=== PATIENT | female | born 1985 | race Caucasian/White ===

== ENCOUNTER 2017-07-21 06:15 | Day surgery (SDC) | payer BC ==
[~2017-07-21 06:15] MED LIST: Lactated Ringers 1,000 ML IV SCH; Sodium Chloride 0.9% 10 ML Syringe FLUSH PRN; Sodium Chloride 0.9% 2.5 ML Syringe FLUSH PRN
--- NOTE | 2017-07-21 06:59 | PCM.PREANE ---
Preanesthetic Assessment - Anesthesia/Transfusion/Family Hx Anesthesia History: Prior Anesthesia Without Reaction Family History of Anesthesia Reaction: No Transfusion History: No Prior Transfusion(s) Intubation History: Unknown - Review of Systems General: No Symptoms Pulmonary: No Symptoms Cardiovascular: No Symptoms Gastrointestinal: No Symptoms Neurological: No Symptoms Other: Reports: None - Physical Assessment Height: 1.68 m Weight: 73.482 kg ASA Class: 2 Mental Status: Alert & Oriented x3 Airway Class: Mallampati = 2 Dentition: Reports: Normal Dentition Thyro-Mental Finger Breadths: 3 Mouth Opening Finger Breadths: 3 ROM/Head Extension: Full Lungs: Clear to Auscultation, Normal Respiratory Effort Cardiovascular: Regular Rate, Regular Rhythm - Lab Values: Laboratory Last Values WBC 9.54 K/uL (4.0-11.0) 07/21/17 06:41 RBC 4.73 M/uL (4.30-5.90) 07/21/17 06:41 Hgb 14.1 g/dL (12.0-16.0) 07/21/17 06:41 Hct 41.2 % (36.0-46.0) 07/21/17 06:41 MCV 87.1 fL (80.0-98.0) 07/21/17 06:41 MCH 29.8 pg (27.0-32.0) 07/21/17 06:41 MCHC 34.2 g/dL (31.0-37.0) 07/21/17 06:41 RDW Std Deviation 42.9 fl (28.0-62.0) 07/21/17 06:41 RDW Coeff of Shreyas 13 % (11.0-15.0) 07/21/17 06:41 Plt Count 476 K/uL (150-400) H 07/21/17 06:41 MPV 9.30 fL (7.40-12.00) 07/21/17 06:41 Nucleated RBC % 0.0 /100WBC 07/21/17 06:41 Nucleated RBCs # 0 K/uL 07/21/17 06:41 - Allergies Allergies/Adverse Reactions: Allergies Allergy/AdvReac Type Severity Reaction Status Date / Time No Known Allergies Allergy Verified 07/16/17 11:44 - Blood Blood Available: No - Anesthesia Plan Pre-Op Medication Ordered: None - Acknowledgements Anesthesia Type Planned: General Anesthesia Pt an Appropriate Candidate for the Planned Anesthesia: Yes Alternatives and Risks of Anesthesia Discussed w Pt/Guardian: Yes Pt/Guardian Understands and Agrees with Anesthesia Plan: Yes PreAnesthesia Questionnaire Respiratory History: Reports: Other (See Below) Other Respiratory History: has not been diagnosed with COPD but uses an inhaler when SOB Gastrointestinal History: Reports: GERD, Other (See Below) (h/o gastric ulcer) Other Genitourinary History: recent UTI, has finished antibiotics [employer] History: Reports: Neurological History: Reports: Concussion Dermatologic History: Reports: Other (See Below) Other Dermatologic History: Dermagraphia - Past Surgical History HEENT Surgical History: Reports: Adenoidectomy, Naso-Sinus Surgery, Tonsillectomy Female Surgical History: Reports: None - SUBSTANCE USE Smoking Status *Q: Current Every Day Smoker (1 ppd) Tobacco Use Within Last Twelve Months: Cigarettes Recreational Drug Use History: No Recreational Drug Type: Reports: Marijuana/Hashish - HOME MEDS Home Medications: Home Meds Albuterol [IJD: Albuterol HFA] 1 puff INH ASDIRECTED PRN 07/16/17 [History] Fexofenadine [Queta] 360 mg PO DAILY 07/16/17 [History] Ibuprofen 400 mg PO ASDIRECTED 07/16/17 [History] Omeprazole Magnesium [Prilosec] 10 mg PO DAILY 07/16/17 [History] hydrOXYzine HCl [hydrOXYzine] 25 mg PO BEDTIME 07/16/17 [History] oxyCODONE HCl/Acetaminophen [Percocet 5-325 mg Tablet] 1 tab PO Q6HR PRN [History] - CURRENT (IN HOUSE) MEDS Current Meds: Current Medications Lactated Ringer's (Ringers, Lactated) 1,000 mls @ 125 mls/hr IV ASDIRECTED ALBERTA Last Admin: 07/21/17 06:48 Dose: 125 mls/hr Sodium Chloride (Saline Flush) 10 ml FLUSH ASDIRECTED PRN PRN Reason: Keep Vein Open Sodium Chloride (Saline Flush) 2.5 ml FLUSH ASDIRECTED PRN PRN Reason: Keep Vein Open
[2017-07-21] MEDS ORDERED: Propofol 200 MG/20 ML SDV ONE (07:17)
[2017-07-21] MEDS ORDERED: fentaNYL 100 MCG/2 ML SDV ONE ×4 (07:17→09:16)
[2017-07-21] MEDS ORDERED: Midazolam 1 MG/ML 2 ML SDV ONE (07:18)
[2017-07-21] MEDS ORDERED: Ondansetron 4 MG/2 ML SDV ONE (07:20)
[2017-07-21] MEDS ORDERED: Glycopyrrolate 0.2 MG/ML SDV ONE (07:20)
[2017-07-21] MEDS ORDERED: Rocuronium 10 MG/ML 10 ML Syringe ONE (07:20)
[2017-07-21] MEDS ORDERED: Neostigmine Methylsulfate 1 MG/ML 5 ML Syringe ONE (07:20)
[2017-07-21] MEDS ORDERED: diphenhydrAMINE 50 MG/ML SDV ONE (07:20)
[2017-07-21] MEDS ORDERED: Ketorolac 30 MG/ML SDV ONE ×2 (07:20→12:42)
[2017-07-21] MEDS ORDERED: Bupivacaine 0.25% 10 ML SDV ONE (07:28)
[2017-07-21] MEDS ORDERED: Dexamethasone 4 MG/ML 5 ML MDV ONE (08:09)
[2017-07-21] MEDS ORDERED: Albuterol 6.7 GM Inhaler INH ONE (08:39)
[2017-07-21] MEDS ORDERED: HYDROmorphone 2 MG/ML SDV ONE ×2 (09:18→11:15)
[2017-07-21] MEDS ORDERED: Fluorescein 5 ML Vial ONE (09:44)
[2017-07-21] MEDS ORDERED: Metoprolol Tartrate 5 MG/5 ML SDV ONE (10:42)
[2017-07-21] MEDS ORDERED: Acetaminophen/oxyCODONE 325-5 MG Tab PO PRN (12:32)
[2017-07-21] MEDS ORDERED: Ketorolac 15 MG/ML SDV IVPUSH ONE (12:32)
[2017-07-21] MEDS ORDERED: fentaNYL 100 MCG/2 ML SDV IVPUSH PRN (12:33)
--- NOTE | 2017-07-21 12:42 | PCM.OPNOTE ---
- General Post-Op/Procedure Note Date of Surgery/Procedure: 07/21/17 Operative Procedure(s): Hysteroscopy, Dilatation and curettage. Laparoscopy, right salpingoophrectomy, Lysis of adhension with cystoscopy Findings: Mobile anteverted uterus, normal left ovary. Right ovary and tube adherent to posterior uterine wall, Sigmond colon and pelvic side wall Endometriosis deposits in the cul de sac. Pre Op Diagnosis: Ovarian cyst. Pelvic pain. Abnormal uterine bleeding Post-Op Diagnosis: Same. Pelvic peritonuem endometrosis Anesthesia Technique: General ET Tube Primary Surgeon: Serene Ba Plumbing Installer: Bernardino Amezquita Pathology: ECC, endometrial curretting, right ovarian cyst, right tube and ovary EBL in mLs: 200 Complications: None Condition: Good
--- NOTE | 2017-07-21 14:19 | PCM48HPAN ---
Post Anesthesia Note - EVALUATION WITHIN 48HRS OF ANESTHETIC Vital Signs in Normal Range: Yes Patient Participated in Evaluation: Yes Respiratory Function Stable: Yes Airway Patent: Yes Cardiovascular Function Stable: Yes Hydration Status Stable: Yes Pain Control Satisfactory: Yes Nausea and Vomiting Control Satisfactory: Yes Mental Status Recovered: Yes Resp Rate: 11 - COMMENTS/OBSERVATIONS Free Text/Narrative:: Pt sitting up in bed and preparing to take oral pain medication. No nausea at this time. No apparent anesthesia complications.
[2017-07-21] MEDS ORDERED: Acetaminophen/oxyCODONE 325-5 MG Tab PO ONE (15:50)
--- NOTE | 2017-07-21 17:05 | PCM.SURGPN ---
- General Info Date of Service: 07/21/17 POD#: 0 Post-Op Diagnosis: Right ovarian cyst, Endometriosis and Pelvic adhesion Functional Status: Reports: Pain Controlled, Tolerating Diet, Ambulating, Urinating - Review of Systems General: Denies: Fever, Weakness, Fatigue HEENT: Denies: Headaches Pulmonary: Denies: Shortness of Breath, Pleuritic Chest Pain Cardiovascular: Denies: Chest Pain, Palpitations, Dyspnea on Exertion Gastrointestinal: Reports: Abdominal Pain Genitourinary: Denies: Dysuria - Patient Data Vitals - Most Recent: Last Vital Signs Temp 36.8 C 07/21/17 12:19 Pulse 72 07/21/17 13:09 Resp 11 L 07/21/17 14:18 BP 105/66 07/21/17 13:09 Pulse Ox 95 07/21/17 13:20 Weight - Most Recent: 162 lb I&O - Last 24 Hours: Intake & Output 07/21/17 07/21/17 07/21/17 06:59 14:59 22:59 Intake Total 2450 450 Output Total 130 200 Balance 2320 250 Lab Results Last 24 Hrs: Laboratory Results - last 24 hr 07/21/17 07/21/17 07/21/17 Range/Units 06:41 06:41 06:41 WBC 9.54 (4.0-11.0) K/uL RBC 4.73 (4.30-5.90) M/uL Hgb 14.1 (12.0-16.0) g/dL Hct 41.2 (36.0-46.0) % MCV 87.1 (80.0-98.0) fL MCH 29.8 (27.0-32.0) pg MCHC 34.2 (31.0-37.0) g/dL RDW Std Deviation 42.9 (28.0-62.0) fl RDW Coeff of Shreyas 13 (11.0-15.0) % Plt Count 476 H (150-400) K/uL MPV 9.30 (7.40-12.00) fL Nucleated RBC % 0.0 /100WBC Nucleated RBCs # 0 K/uL HCG, Qual NEGATIVE (NEG) Blood Type A POSITIVE Antibody Screen NEGATIVE Med Orders - Current: Current Medications Oxycodone/Acetaminophen (Percocet 325-5 Mg) 1 tab PO Q4H PRN PRN Reason: Pain Last Admin: 07/21/17 14:08 Dose: 1 tab Discontinued Medications Albuterol (Proventil Hfa) Confirm Administered Dose 6.7 gm INH .STK-MED ONE Stop: 07/21/17 08:40 Bupivacaine HCl (Sensorcaine-Mpf 0.25%) Confirm Administered Dose 30 ml .ROUTE .STK-MED ONE Stop: 07/21/17 07:29 Dexamethasone (Dexamethasone) Confirm Administered Dose 20 mg .ROUTE .STK-MED ONE Stop: 07/21/17 08:10 Diphenhydramine HCl (Benadryl) Confirm Administered Dose 50 mg .ROUTE .STK-MED ONE Stop: 07/21/17 07:21 Fentanyl (Sublimaze) Confirm Administered Dose 100 mcg .ROUTE .STK-MED ONE Stop: 07/21/17 07:18 Fentanyl (Sublimaze) Confirm Administered Dose 100 mcg .ROUTE .STK-MED ONE Stop: 07/21/17 08:20 Fentanyl (Sublimaze) Confirm Administered Dose 100 mcg .ROUTE .STK-MED ONE Stop: 07/21/17 08:28 Fentanyl (Sublimaze) Confirm Administered Dose 100 mcg .ROUTE .STK-MED ONE Stop: 07/21/17 09:17 Fentanyl (Sublimaze) 50 mcg IVPUSH Q5M PRN PRN Reason: Pain (severe 7-10) Stop: 07/21/17 14:00 Last Admin: 07/21/17 12:55 Dose: 25 mcg Fluorescein Sodium (Ak-Fluor) Confirm Administered Dose 5 ml .ROUTE .STK-MED ONE Stop: 07/21/17 09:45 Glycopyrrolate (Robinul) Confirm Administered Dose 0.4 mg .ROUTE .STK-MED ONE Stop: 07/21/17 07:21 Hydromorphone HCl (Dilaudid) Confirm Administered Dose 2 mg .ROUTE .STK-MED ONE Stop: 07/21/17 09:19 Hydromorphone HCl (Dilaudid) Confirm Administered Dose 2 mg .ROUTE .STK-MED ONE Stop: 07/21/17 11:16 Lactated Ringer's (Ringers, Lactated) 1,000 mls @ 125 mls/hr IV ASDIRECTED [facility] Last Admin: 07/21/17 06:48 Dose: 125 mls/hr Ketorolac Tromethamine (Toradol) Confirm Administered Dose 30 mg .ROUTE .STK- MED ONE Stop: 07/21/17 07:21 Ketorolac Tromethamine (Toradol) 30 mg IVPUSH ONETIME ONE Stop: 07/21/17 12:33 Last Admin: 07/21/17 12:45 Dose: 30 mg Ketorolac Tromethamine (Toradol) Confirm Administered Dose 30 mg .ROUTE .STK- MED ONE Stop: 07/21/17 12:43 Last Admin: 07/21/17 14:01 Dose: Not Given Lidocaine HCl (Xylocaine-Mpf 1%) Confirm Administered Dose 5 ml .ROUTE .STK-MED ONE Stop: 07/21/17 07:21 Metoprolol Tartrate (Lopressor) Confirm Administered Dose 5 mg .ROUTE .STK-MED ONE Stop: 07/21/17 10:43 Midazolam HCl (Versed 1 Mg/Ml) Confirm Administered Dose 2 mg .ROUTE .STK-MED ONE Stop: 07/21/17 07:19 Neostigmine Methylsulfate (Neostigmine) Confirm Administered Dose 5 mg .ROUTE .STK-MED ONE Stop: 07/21/17 07:21 Ondansetron HCl (Zofran) Confirm Administered Dose 4 mg .ROUTE .STK-MED ONE Stop: 07/21/17 07:21 Oxycodone/Acetaminophen (Percocet 325-5 Mg) 1 tab PO ONETIME ONE Stop: 07/21/17 15:51 Last Admin: 07/21/17 16:14 Dose: 1 tab Propofol (Diprivan 20 Ml) Confirm Administered Dose 200 mg .ROUTE .STK-MED ONE Stop: 07/21/17 07:18 Rocuronium [place] (Zemuron) Confirm Administered Dose 100 mg .ROUTE .STK-MED ONE Stop: 07/21/17 07:21 Sodium Chloride (Saline Flush) 10 ml FLUSH ASDIRECTED PRN PRN Reason: Keep Vein Open Sodium Chloride (Saline Flush) 2.5 ml FLUSH ASDIRECTED PRN PRN Reason: Keep Vein Open - Exam Wound/Incisions: Dressing Dry and Intact General: Alert, Oriented Lungs: Clear to Auscultation, Normal Respiratory Effort Cardiovascular: Regular Rate, Regular Rhythm GI/Abdominal Exam: Normal Bowel Sounds, Soft, Tender (Appropriate on the incision sites, more on the right, slightly swollen but soft) Extremities: Normal Inspection Psy/Mental Status: Alert, Normal Affect, Normal Mood - Problem List & Annotations (1) Ovarian cyst SNOMED Code(s): 97533423 Code(s): N83.209 - UNSPECIFIED OVARIAN CYST, UNSPECIFIED SIDE Status: Acute Current Visit: Yes (2) Pelvic peritoneal adhesions SNOMED Code(s): 891062538 Code(s): YXT5927 - Status: Acute Current Visit: Yes (3) Endometriosis SNOMED Code(s): 083805980 Code(s): N80.9 - ENDOMETRIOSIS, UNSPECIFIED Status: Acute Current Visit: Yes (4) S/P laparoscopic procedure SNOMED Code(s): 270404249, 290219525 Code(s): Z98.890 - OTHER SPECIFIED POSTPROCEDURAL STATES Status: Acute Current Visit: Yes (5) S/P unilateral salpingo-oophorectomy SNOMED Code(s): 753485997 Code(s): Z90.721 - ACQUIRED ABSENCE OF OVARIES, UNILATERAL Status: Acute Current Visit: Yes (6) Status post hysteroscopy SNOMED Code(s): 862203582 Code(s): Z98.890 - OTHER SPECIFIED POSTPROCEDURAL STATES Status: Acute Current Visit: Yes - Problem List Review Problem List Initiated/Reviewed/Updated: Yes - My Orders Last 24 Hours: Active Orders 24 hr Category Date Time Status Patient Status [ADT] Routine ADT 07/21/17 12:32 Active Ambulate [RC] PER UNIT ROUTINE Care 07/21/17 12:33 Active Antiembolic Devices [RC] PER UNIT ROUTINE Care 07/21/17 05:00 Inactive Oxygen Therapy [RC] ASDIRECTED Care 07/21/17 12:34 Active Peripheral IV Care [RC] . DIRECTED Care 07/21/17 05:00 Inactive Procedure Prep Instructions [RC] PER UNIT ROUTINE Care 07/21/17 05:00 Inactive Procedure Site Prep Instruct [RC] PER UNIT ROUTINE Care 07/21/17 05:00 Inactive Verify Patient Consent Obtain [RC] PER UNIT ROUTINE Care 07/21/17 05:00 Inactive Vital Signs [RC] PER UNIT ROUTINE Care 07/21/17 05:00 Inactive Regular Diet [DIET] Diet 07/21/17 Lunch Active Acetaminophen/oxyCODONE [Percocet 325-5 MG] Med 07/21/17 12:32 Active 1 tab PO Q4H PRN Peripheral IV Discontinue [OM.PC] Routine Oth 07/21/17 12:32 Ordered Resuscitation Status Routine Resus Stat 07/21/17 12:32 Ordered Medication Orders Oxycodone/Acetaminophen (Percocet 325-5 Mg) 1 tab PO Q4H PRN PRN Reason: Pain Last Admin: 07/21/17 14:08 Dose: 1 tab - Assessment Assessment (Free Text/Narrative):: POD#0, s/p hysteroscopy, D&C, right salpingoophrectomy, Lysis of adhensions and cystoscopy. Doing well and would like to go home. Discussed surgical findings and procedure performed. I also explained the finding of possible pelvic infection due to purulent looking ovarian aspirate. - Plan Plan (Free Text/Narrative):: Will give a dose of Cefoxitin 2g x 1 dose and discharge home on Metrodiazole and Doxycycline for possible pelvic infection. GC/Chlamydia swab obtained Will discharge home later. Discharge instructions reviewed Follow up in 2 weeks
[2017-07-21] MEDS ORDERED: cefOXitin 2 GM in Premix Bag 1 BAG IV ONE (17:14)
[2017-07-21] MEDS ORDERED: Ketorolac 30 MG/ML SDV IM ONE (17:18)
[2017-07-21] MEDS ORDERED: cefOXitin 1 GM Vial IM ONE (17:46)
[2017-07-21] MEDS ORDERED: cefOXitin 1 GM in Premix Bag 1 BAG IV ONE (18:00)
[2017-07-21 19:30] VITALS: BP 112/75
--- NOTE | 2017-07-22 01:22 | OR ---
SURGEON: Serene Ba MD DATE OF PROCEDURE: 07/21/2017 CRM MANAGER: Dr. Amezquita PREOPERATIVE DIAGNOSES: 1. Pelvic pain. 2. Right ovarian cyst. 3. Abnormal uterine bleeding. POSTOPERATIVE DIAGNOSES: 1. Pelvic pain. 2. Right ovarian cyst 3. Abnormal uterine bleeding. 4. Stage 3 endometriosis 5. Suspected right tuboovarian abscess PROCEDURE PERFORMED: 1. Diagnostic hysteroscopy with dilatation and curettage. 2. Operative laparoscopy with extensive lysis of adhesion and right salpingo- oophorectomy. 3. Cystoscopy ANESTHESIA: General endotracheal. ESTIMATED BLOOD LOSS: 200 mL. COMPLICATIONS: None. DISPOSITION: Stable to recovery room. FINDINGS: Mobile anteverted uterus, sounded to 8cm. Palpable posterior uterine wall mass on bimanual examination. Hysteroscopic findings revealed fluffy endometrial lining with no polyps or fibroids seen. Both fallopian tube ostia were visualized. Laparoscopic findings revealed normal right tube and ovary,normal-appearing uterus. Endometriotic deposits were visualized in the pelvic cul-de-sac,anterior cul de sac and on the uterosacral ligaments. The right ovary was stuck down in the posterior cul de sac, densely adherent to the pelvic sidewall, the posterior uterine wall, the right uterosacral ligament and then was adherent medially to the sigmoid colon. The fimbrial end of the right fallopian tube was found to be adherent right ovary and the tube was engulfed in a tuboovarian mass. Purulent looking fluid was drained from this tuboovarian mass. Both ureters were found to be deep within the pelvis. Normal upper abdomen survey. INDICATIONS: The patient is a 32-year-old lady, who presented to the office for evaluation of pelvic pain following a ER visit. In the ER, where she was evaluated, a CT scan was performed which reported that the patient had multiple large ovarian cysts. She presented a history of chronic pelvic pain with an acute excerebration that led to the ER presentation.Pelvic ultrasound in the office showed a 4.7 cm right complex cyst which in characteristics looked hemorrhagic in nature and also a 3 cm simple cyst on the left side. After reviewing the management options with the patient, expectant management versus surgical, the patient opted to proceed with surgical management. The risks of the surgery were discussed with her extensively. Also of note was that the patient was complaining that since the beginning of the year, she has had at least 5 menstrual periods each of them lasting at least 3 to 4 days,heavy flow and painful. The pelvic ultrasound showed that the endometrial lining was thickened with cystic areas. Hence, the patient was then consented for diagnostic hysteroscopy, dilatation and curettage, laparoscopy with ovarian cystectomy, and possible oophorectomy. Appropriate consent was obtained. DESCRIPTION OF PROCEDURE: The patient was taken to the operating room, placed in dorsal supine position. SCDs in place. Induction of general anesthesia was performed without difficulty. After appropriate level of anesthesia was achieved, she was placed in dorsal lithotomy position, prepped and draped in the usual sterile fashion for vaginal and laparoscopic surgery. The bladder had already been emptied. Appropriate time-out was held. A bivalve speculum was then placed in the vagina and the anterior lip of the cervix was grabbed with an Allis clamp. Endocervical curettage was performed and the specimen was collected with the Cytobrush.The cervix was then dilated serially up to a #5 Hegar dilator and a 5 mm diagnostic hysteroscope was then placed and introduced into the uterine cavity using normal saline as the distention media. Upon entering the cavity, aforementioned findings were noted. The hysteroscope was removed and dilatation and curettage of all 4 gibbons of the endometrial cavity was performed with copious amount of tissue retrieved. The hysteroscope was reinserted into the cavity and no injuries to the uterine wall was noted. A Zumi uterine manipulator was then placed into the cavity for uterine manipulator.The Allis clamp and the bivalve speculum were removed from the patient's vagina. The surgeon's gloves were changed and attention was turned to the patient's abdomen. The umbilical fold was infiltrated with 0.25% Marcaine and a 5 mm skin incision was made with a scalpel, tenting the anterior abdominal in the wall upwards a Veress needle was introduced into the abdominal cavity and the CO2 gas was connected. The opening pressure was 2 mmHg. The abdomen was then insufflated and after adequate pneumoperitoneum was achieved, the Veress needle was removed and a 5 mm trocar and sleeve was introduced into the peritoneal cavity while tenting up the abdominal wall. A 5 mm laparoscope was then introduced into the abdomen. The area directly below the point of entry was inspected and no injuries or bleeding was visualized. Also, no uterine injury from the hysteroscopy seen. Two additional 5 mm trocars were placed bilaterally in the left lower quadrant 8 cm from the midline and 5 cm from the anterior iliac spine under direct laparoscopic visualization after the skin had been infiltrated with 0.25% Marcaine. Survey of the pelvis was performed and the aforementioned findings were noted. The ureters were traced on either sides. The patient was then placed in steep Trendelenburg position and the bowel was swept away from the right side and cephalad. Using laparoscopic scissors attached to cautery, I gently started to release the right ovary from the pelvic side wall, performing adhesiolysis using both blunt and sharp dissection with cautery. Copious irrigation was performed along the way to aid visualization of the operative field. The right fallopian tube was released and since it was damaged, a right salpingectomy was performed using the Ligature device. The specimen was placed in the anterior cul -de-sac for retrieval later. (All specimens were placed in the anterior cul de sac to be retrieved later). During the manipulation, the cyst wall of the right ovarian cyst inadvertently ruptured with purulent fluid draining from the cyst.This was aspirated and sent off for cytological analysis and copious irrigation performed. The cystomy site was bleeding despite attempts to cauterize the area. Based on the intraoperative findings, I made a decision to proceed with an oophorectomy. I traced the infundibulopelvic ligament upward and then making sure that it was not close to the ureter.Using the Ligature device,it cauterized twice and then cut, Once this was done, I turned my attention to releasing the ovary from the posterior uterine wall Once again using both sharp and blunt dissection,I gently released the ovary from the posterior uterine wall, staying very close to the uterine wall and slowly working my way distally into the pelvis towards the uterosacral ligament. To enable further visualization of the operative field, I had to remove parts of the meshy ball of the devascularized ovary and fibrotic tissue piecemeal using the ligature device. This was done in 2 parts and once was done, I was able visualize the part of the ovary adherent the uterosacral ligament.These adhesions were released and the remnant of the right ovary was freed from the uterosacral ligament. The was a small ovarian tissue that was adherent to the sigmoid colon that wasn' t safe for me able to remove thus it was left adherent. This tissue is approximately 15 mm or less After all these tissue had been removed, copious irrigation of the pelvis was performed and the area was found to be hemostatic. I reduced the pressure to 5mmHg and once again, observed the area on the lower pressure and it was found to be hematostatic. The right port was removed and was replaced with a 12 mm port. An Endobag device was then introduced through this port, advanced toward the anterior cul de sac. All the specimens were retrieved and removed from the abdomen. Examination of the upper abdomen was performed and this was found to be normal. Avitene hemostatic powder applied to the raw areas in the pelvis to aid for further hemostasis. Due to the extensive adhesiolysis that was performed along the right pelvic sidewall, I decided to perform a cystoscopy to check for integrity of the ureters. The pneumoperitoneum was then released and all the lateral ports were removed under direct visualization. The laparoscope and the umbilical port were also removed. Attention was then turned to the cystoscopy. The patient had been given fluorescein and furosemide. No injury was noted to the bladder mucosa and both ureteral orifices showed ureter jets with copious amount of fluorescent green urine draining bilaterally. The bladder was then drained and the cystoscope was removed. The Zumi uterine manipulator was removed. My gloves were changed and attention was turned back to the patient's abdomen. All the skin incisions were then closed with 4-0 Monocryl suture using subcuticular stitches. The sponge, instrument, and needle counts were correct at the end of the procedure. PRINCESS / DAYAMI /[id number] MYNOR
== END 2017-07-21 19:10 | disposition home or self-care (01) ==
LOC: MW.SDS 06:15 → MW.MS 13:27 → MW.SDS 19:10
PROVIDERS: ATTEND Obstetrics & Gynecology
DX: N80.2 Endometriosis of fallopian tube (principal); N80.1 Endometriosis of ovary; Z79.899 Other long term (current) drug therapy; F17.210 Nicotine dependence, cigarettes, uncomplicated
CPT/HCPCS: 58558; 58661; 84703; 85027; 86850; 86900; 86901; 87491; 87591; A9270; J0694; J1100; J1170; J1200; J1885; J2250; J2405; J3010; J7120; 00840; 88104; 88305; J2704